=== PATIENT | male | born 1985 | race Caucasian/White ===

== ENCOUNTER → 2018-10-19 | Day surgery (SDC) | payer OTHER ==
[~2018-10-19] MED LIST: DEXAMETHASONE SOD PHOS 10 MG/1 ML VIAL ONE; DOXYCYCLINE HY100 M3 PO; FENTANYL CITRATE/PF 100MCG/2 ML INJ ONE; IOPAMIDOL 200 MG/ML 20 ML VIAL IT ONE; LIDOCAINE HCL 1% 30ML-PF VIAL ONE; LIDOCAINE HCL 2% LOCAL INJ 5 ML SDV VIAL INJ ONE; MIDAZOLAM HCL 2 MG/2 ML VIAL ONE; PROPOFOL IV EMULSION 10 MG/ML 20 ML VIAL ONE
[2018-10-19 09:10] VITALS: BP 125/75
== END | disposition home or self-care (01) ==
LOC: OR 06:25
PROVIDERS: ATTEND Physical Medicine & Rehabilitation Pain Medicine
DX: M54.16 Radiculopathy, lumbar region (principal); Z88.2 Allergy status to sulfonamides; R93.7 Abnormal findings on diagnostic imaging of other parts of musculoskeletal system
CPT/HCPCS: 64483; 64484; J1100; J2001 ×2; J2250; J2704; J3010; Q9967; 77003

== ENCOUNTER → 2018-11-09 | Day surgery (SDC) | payer OTHER ==
[~2018-11-09] MED LIST changes: -DEXAMETHASONE SOD PHOS 10 MG/1 ML VIAL ONE; -LIDOCAINE HCL 2% LOCAL INJ 5 ML SDV VIAL INJ ONE
[2018-11-09 07:55] VITALS: BP 105/63
== END | disposition home or self-care (01) ==
LOC: OR 05:54
PROVIDERS: ATTEND Physical Medicine & Rehabilitation Pain Medicine
DX: M54.16 Radiculopathy, lumbar region (principal); Z88.2 Allergy status to sulfonamides; F41.9 Anxiety disorder, unspecified
CPT/HCPCS: 64483; 77003; J2001; J2250; J2704; J3010; Q9967